=== PATIENT | male | born 1990 | race Caucasian/White ===

== ENCOUNTER 2019-09-26 21:12 | Emergency (ER) | payer OTHER, MEDICAID, SELFPAY ==
[2019-09-26 21:23] VITALS: BP 134/82; PULSE 87; RESP 15; TEMP 36.4; O2SAT 100; BMI 23.0
--- NOTE | 2019-09-26 23:12 | PC.NURSE ---
Pt had not returned to ED, will remove from tracker.
--- NOTE | 2019-09-27 06:51 | ED.WOUNDLAC ---
HPI - Wound/Laceration General Chief Complaint: Wound/Laceration Stated Complaint: wound on chin, says 'something hit him' Source: patient Mode of arrival: Ambulatory Related Data Previous Rx's Medication Instructions Recorded ondansetron [Zofran ODT] 4 mg SUBLINGUAL Q6HP PRN #20 odt 09/14/17 Allergies Allergy/AdvReac Type Severity Reaction Status Date / Time No Known Drug Allergies Allergy Verified 09/26/19 21:30 Patient History Social History Smoking Status: Current every day smoker Smoking Status: Current every day smoker alcohol intake frequency: 0-2 drinks per day Substance Use Type: marijuana Exam Initial Vital Signs Initial Vital Signs: Vital Signs Temperature 97.5 F L 09/26/19 21:23 Pulse Rate 87 09/26/19 21:23 Respiratory Rate 15 09/26/19 21:23 Blood Pressure 134/82 09/26/19 21:23 Pulse Oximetry 100 09/26/19 21:23 Discharge Plan Departure Patient Disposition: Left Without Being Seen Clinical Impression: Patient left without being seen Discharge Date/Time: 09/26/19 23:15
== END 2019-09-26 23:15 | disposition left against medical advice (07) ==
PROVIDERS: Emergency Provider Emergency Medicine
CPT/HCPCS: 99281